=== PATIENT | female | born 1975 | race African-American/Black ===

== ENCOUNTER 2016-06-15 05:41 | Inpatient (IN) | payer OTHER ==
[~2016-06-15] VITALS: Ht 160 cm; Wt 78.9 kg
[2016-06-15] MEDS ORDERED: KETOROLAC TROMETHAMINE INJ 30 MG/ML VIAL ONE (06:05)
[2016-06-15] MEDS ORDERED: CELECOXIB 100 MG CAPSULE ONE (06:05)
[2016-06-15] MEDS ORDERED: ACETAMINOPHEN 325 MG TABLET ONE (06:05)
[2016-06-15] MEDS ORDERED: oxyCODONE HCL SR 20MG TAB.SR.12H PO ONE (06:05)
[2016-06-15] MEDS ORDERED: SUCCINYLCHOLINE CHLORIDE 20 MG/ML VIAL ONE (06:59)
[2016-06-15] MEDS ORDERED: ROCURONIUM BROMIDE 50 MG/5 ML ONE (06:59)
[2016-06-15] MEDS ORDERED: FENTANYL PF 250MCG/5ML AMPUL ONE ×2 (07:00→08:05)
[2016-06-15] MEDS ORDERED: HYDROMORPHONE INJ 2 MG/ML DISP.SYRIN ONE (07:00)
[2016-06-15] MEDS ORDERED: PROPOFOL 100 ML IV ONE ×2 (07:01→08:48)
[2016-06-15] MEDS ORDERED: CEFAZOLIN 1 GM ONE (07:11)
[2016-06-15] MEDS ORDERED: methylPREDNISolone ACETATE 80 MG/ML VIAL ONE (07:11)
[2016-06-15] MEDS ORDERED: BUPIVACAINE 0.5 % PF 150 MG/30 ML VIAL ONE (07:11)
[2016-06-15] MEDS ORDERED: HEMOSTATIC MATRIX 10 ML 1 EACH PAD MC ONE (07:12)
[2016-06-15] MEDS ORDERED: LIDOCAINE MPF 1%-EPI 1:200,000 30 ML VIAL IJ ONE ×2 (07:12→07:19)
[2016-06-15] MEDS ORDERED: METHYLENE BLUE AMP (1ML) 1 ML AMPUL ONE (07:12)
[2016-06-15] MEDS ORDERED: HEPARIN SODIUM, PORCINE 5000 UNITS/1 ML VIAL ONE (07:13)
[2016-06-15] MEDS ORDERED: IV LR 1000 ML 1,000 ML ONE (11:00)
[2016-06-15 11:40] VITALS: BP 96/52
[2016-06-15 12:00] VITALS: BP_SYST 96; BP_SYST 99; BP_DIAS 52; BP_DIAS 67
[2016-06-15] MEDS ORDERED: BISACODYL SUPP (10 MG) 10 MG/SUPP.RECT SUPP.RECT RC PRN ×2 (12:00→13:00)
[2016-06-15] MEDS ORDERED: DOCUSATE SODIUM 100 MG CAPSULE PO PRN (12:00)
[2016-06-15] MEDS ORDERED: ZOLPIDEM TARTRATE 5 MG TABLET PO PRN (12:00)
[2016-06-15] MEDS ORDERED: ONDANSETRON HCL/PF 4 MG/2 ML VIAL IV PRN (12:00)
[2016-06-15] MEDS ORDERED: ALBU18HF2 INH (12:04)
[2016-06-15] MEDS ORDERED: ONDANSETRON HCL/PF 4 MG/2 ML VIAL IVP PRN (13:00)
[2016-06-15] MEDS ORDERED: MENTHOL/CETYLPYRD (CEPACOL) 1 LOZ LOZENGE MM PRN (13:00)
[2016-06-15] MEDS ORDERED: LORAZEPAM 0.5 MG TABLET PO PRN (13:00)
[2016-06-15] MEDS ORDERED: SCOPOLAMINE HBR 1 EA PATCH.TD72 TD PRN (13:00)
[2016-06-15] MEDS ORDERED: PROMETHAZINE HCL 25 MG/ML AMPUL IM PRN (13:00)
[2016-06-15] MEDS ORDERED: diphenhydrAMINE HCL 25 MG CAPSULE PO PRN (13:00)
[2016-06-15] MEDS ORDERED: HYDROCODONE/APAP 10/325MG 1 EA TABLET PO PRN (13:00)
[2016-06-15] MEDS ORDERED: HYDROMORPHONE 1 MG/1 ML DISP.SYRIN SQ PRN (13:00)
[2016-06-15] MEDS ORDERED: CYCLOBENZAPRINE 10 MG TABLET PO PRN (13:00)
[2016-06-15] MEDS: ACETAMINOPHEN 325 MG TABLET PO PRN (13:11)
[2016-06-15] MEDS ORDERED: MAG HYDROX/AL HYDROX/SIMETH 30 ML UDC PO PRN (13:30)
[2016-06-15] MEDS ORDERED: NALOXONE HCL 0.4 MG/ML AMPUL IV PRN (13:30)
[2016-06-15] MEDS ORDERED: SET PCA INFUSE SET 1 EA INFUS.SET MC ONE (14:53)
[2016-06-15] MEDS ORDERED: IV SET PRIMARY PUMP SET 1 EA INFUS.SET MC ONE ×2 (14:54→16:08)
[2016-06-15] MEDS ORDERED: IV NS 0.9% 250 ML IV ONE ×2 (14:54→16:14)
[2016-06-15 16:00] VITALS: BP 105/63
[2016-06-15] MEDS: HYDROMORPHONE MDV 30 MG in IV NS 0.9% 15 ML, PCA TOTAL VOLUME 1 BAG IV PRN ×3 (16:02)
[2016-06-15] MEDS: DOCUSATE SODIUM 100 MG CAPSULE PO SCH (16:03)
[2016-06-15] MEDS ORDERED: SECONDARY IV SET 1 EA INFUS.SET MC ONE (16:07)
[2016-06-15] MEDS: CEFAZOLIN 1 GM in IV D5W 50 ML IV SCH ×2 (16:13→23:16)
[2016-06-15] MEDS ORDERED: ALBUTEROL SULFATE 8 GM HFA.AER.AD IH PRN (18:00)
[2016-06-15 20:00] VITALS: BP 106/61
[2016-06-15] MEDS ORDERED: oxyCODONE IR immediate release 5 MG CAPSULE PO PRN (23:00)
[2016-06-15] MEDS ORDERED: ALBUTEROL FS 2.5 MG/0.5 ML VIAL.NEB NEB SCH (23:00)
[2016-06-15] MEDS: PANTOPRAZOLE 40 MG TABLET.DR PO SCH (23:10)
[2016-06-16] MEDS ORDERED: ALBUTEROL FS 2.5 MG/0.5 ML VIAL.NEB ONE (01:02)
[2016-06-16 03:19] VITALS: BP 106/61
[2016-06-16 07:53] LABS: DIFF TOTAL % 100 %; HEMATOCRIT 33 % (33-45); HEMOGLOBIN 10.5 g/dL (11.5-14.8); LYMPHOCYTES # (AUTO) 1.1 /CMM (0.8-4.8); MEAN CORPUSCULAR HEMOGLOBIN 23 PG (26.0-33.0); MEAN CORPUSCULAR HGB CONC 32 g/dl (31.0-36.0); MEAN CORPUSCULAR VOLUME 73 fL (82-100); MONOCYTES # (AUTO) 0.9 /CMM (0.1-1.30); MONOCYTES % (AUTO) 6.1 % (2.0-12.0); NEUTROPHILS # (AUTO) 12.3 /CMM (1.8-8.9); NEUTROPHILS % (AUTO) 85.9 % (43.0-81.0); PLATELET COUNT (AUTO) 243 /CMM (150-450); RED BLOOD CELL COUNT(AUTO) 4.57 MIL/uL (4.0-5.2); WHITE BLOOD COUNT (AUTO) 14.3 K/uL (4.3-11.0)
[2016-06-16 08:00] VITALS: BP 103/62
[2016-06-16 08:06] LABS: CALCIUM, SERUM 8.6 mg/dL (8.5-10.1); CREATININE 0.8 mg/dL (0.6-1.3); POTASSIUM 3.9 mmol/L (3.5-5.1)
[2016-06-16] MEDS: DOCUSATE SODIUM 100 MG CAPSULE PO SCH ×2 (08:17→16:05)
[2016-06-16] MEDS: ALBUTEROL FS 2.5 MG/3 ML VIAL.NEB NEB SCH ×2 (13:30→19:30)
[2016-06-16] MEDS ORDERED: SET PCA INFUSE SET 1 EA INFUS.SET MC ONE (15:45)
[2016-06-16] MEDS ORDERED: IV NS 0.9% 250 ML IV ONE (16:01)
[2016-06-16] MEDS: HYDROMORPHONE MDV 30 MG in IV NS 0.9% 15 ML, PCA TOTAL VOLUME 1 BAG IV PRN ×3 (16:03)
[2016-06-16] MEDS: ACETAMINOPHEN 325 MG TABLET PO PRN (16:05)
[2016-06-16 16:24] VITALS: BP 108/67
[2016-06-16 20:00] VITALS: BP 103/65
[2016-06-16] MEDS ORDERED: oxyCODONE IR immediate release 5 MG CAPSULE PO PRN (20:50)
[2016-06-16] MEDS: PANTOPRAZOLE 40 MG TABLET.DR PO SCH (21:30)
[2016-06-16 21:45] VITALS: BP 105/72
[2016-06-16 23:00] VITALS: BP 106/61
[2016-06-16] MEDS: oxyCODONE IR immediate release 5 MG CAPSULE PO PRN (23:38)
[2016-06-17] MEDS: ALBUTEROL FS 2.5 MG/3 ML VIAL.NEB NEB SCH ×2 (01:30→13:45)
[2016-06-17 02:30] VITALS: BP 116/77
[2016-06-17] MEDS: oxyCODONE IR immediate release 5 MG CAPSULE PO PRN ×3 (02:44→13:43)
[2016-06-17] MEDS: ACETAMINOPHEN 325 MG TABLET PO PRN (05:14)
[2016-06-17 08:00] VITALS: BP 116/69
[2016-06-17] MEDS ORDERED: MAGNESIUM HYDROXIDE 30 ML UDC PO PRN (13:30)
[2016-06-17] MEDS: DOCUSATE SODIUM 100 MG CAPSULE PO SCH (13:43)
== END 2016-06-17 15:45 | disposition home health service (06) | DRG 460 ==
LOC: DS 05:41 → MED 12:15
PROVIDERS: ADMIT Specialist; ATTEND Specialist
DX: M51.17 Intervertebral disc disorders with radiculopathy, lumbosacral region (principal); M48.07 Spinal stenosis, lumbosacral region; J45.909 Unspecified asthma, uncomplicated
CPT/HCPCS: 36415; 72020-TC; 80048-TC; 84703-TC; 85025-TC; 86850-TC; 86921-TC; 87081-TC; 88304-TC; 88305-TC; 88311-TC; 94799-TC; 97001-TC; 97116-TC; 97530-TC; A4216; A6402; J0330; J0690; J1040; J1170; J1644; J1885; J2405; J3010; J3490; J7050; J7060; J7120; Q9968